=== PATIENT | female | born 1985 | race Caucasian/White ===

== ENCOUNTER 2016-12-29 17:52 | Emergency (ER) | payer OTHER ==
[~2016-12-29] VITALS: Ht 165.1 cm; Wt 56.7 kg
[2016-12-29 18:00] VITALS: BP 125/74; PULSE 74; RESP 19; TEMP 98; O2SAT 97
--- NOTE | 2016-12-29 18:10 | NUR ---
Patient triaged and placed in waiting room. VSS and patient appears in no acute distress at this time. Accompanied by FAMILY, awaiting available bed, and MD notified of need for MSE.
--- NOTE | 2016-12-29 19:10 | NUR ---
Patient to [facility] for evaluation. Side rails up. Report given to PAULA Jang.
--- NOTE | 2016-12-29 19:45 | NUR ---
GINA Holbrook examining patient.
[2016-12-29 20:04] LABS: BILIRUBIN,URINE NEGATIVE (NEGATIVE); BLOOD, URINE NEGATIVE (NEGATIVE); CLARITY/URINE CLEAR (CLEAR); COLOR,URINE YELLOW (YELLOW); GLUCOSE,URINE NEGATIVE (NEGATIVE); KETONES,URINE NEGATIVE (NEGATIVE); LEUKOCYTE ESTERASE ,URINE NEGATIVE (NEGATIVE); NITRITE, URINE NEGATIVE (NEGATIVE); PH,URINE 6.5 (5.0-8.0); PROTEIN URINE NEGATIVE (NEGATIVE); UROBILINOGEN,URINE 0.2 (0.2-1.0)
[2016-12-29] MEDS ORDERED: KETOROLAC TROMETHAMINE 60 MG/2 ML VIAL IM ONE (20:15)
[2016-12-29 20:27] VITALS: BP 125/74; PULSE 74; RESP 19; TEMP 98; O2SAT 97
--- NOTE | 2016-12-29 20:27 | NUR ---
Patient given written and verbal discharge instructions and verbalizes understanding. ER BUDGET MANAGER Yusef discussed with patient the results and treatment provided. Patient in stable condition. ID arm band removed. Rx of Motrin 600 given. Patient educated on pain management and to follow up with PMD. Pain Scale 2/10. Opportunity for questions provided and answered.
== END 2016-12-29 20:27 | disposition home or self-care (01) ==
LOC: SED 17:52
DX: R10.13 Epigastric pain (principal); R51 Headache
CPT/HCPCS: 81003; 81025; 96372; 99283; J1885

== ENCOUNTER 2017-03-20 11:28 | Outpatient (CLI) | payer OTHER | END 2017-03-20 15:24 | disposition home or self-care (01) | LOC: SRD 11:28 | PROVIDERS: ATTEND Internal Medicine | DX: Z01.818 Encounter for other preprocedural examination (principal); R05 Cough | CPT/HCPCS: 71020-TC ==

== ENCOUNTER 2017-03-30 05:30 | Day surgery (SDC) | payer OTHER ==
[2017-03-29 10:29] LABS: BASOPHILS % (AUTO) 0.4 % (0.0-2.0); EOSINOPHILS # (AUTO) 0.1 K/uL (0.0-0.4); HEMOGLOBIN 14.9 g/dL (12.0-16.0); LYMPHOCYTES # (AUTO) 1.8 K/uL (1.0-5.5); LYMPHOCYTES % (AUTO) 31.5 % (20.5-51.5); MEAN CORPUSCULAR HEMOGLOBIN 29 pg (27-31); MEAN CORPUSCULAR HGB CONC 33 % (32-36); MEAN CORPUSCULAR VOLUME 88 fL (79.0-98.0); MONOCYTES # (AUTO) 0.5 K/uL (0.0-1.0); MONOCYTES % (AUTO) 8.3 % (1.7-9.3); NEUTROPHILS # (AUTO) 3.3 K/uL (1.8-7.7); NEUTROPHILS % (AUTO) 57.8 % (40.0-70.0); PLATELET COUNT (AUTO) 226 K/uL (130-430); RED BLOOD CELL COUNT(AUTO) 5.13 MIL/uL (4.2-6.2); RED CELL DISTRIBUTION WIDTH 11.4 % (9.0-15.0); WHITE BLOOD COUNT (AUTO) 5.7 K/uL (4.8-10.8)
[2017-03-29 10:50] LABS: ALBUMIN 4.3 g/dL (3.4-4.8); CALCIUM 9.3 mg/dL (8.4-11.0); CREATININE 0.68 mg/dL (0.55-1.30); POTASSIUM 4.5 mmol/L (3.5-5.1); TOTAL BILIRUBIN 0.4 mg/dL (0.0-1.0); TOTAL PROTEIN, SERUM 7.9 g/dL (6.4-8.3)
[2017-03-29 11:09] LABS: BILIRUBIN,URINE NEGATIVE (NEGATIVE); BLOOD, URINE NEGATIVE (NEGATIVE); CLARITY/URINE CLEAR (CLEAR); COLOR,URINE YELLOW (YELLOW); GLUCOSE,URINE NEGATIVE (NEGATIVE); KETONES,URINE NEGATIVE (NEGATIVE); LEUKOCYTE ESTERASE ,URINE NEGATIVE (NEGATIVE); NITRITE, URINE NEGATIVE (NEGATIVE); PROTEIN URINE NEGATIVE (NEGATIVE); UROBILINOGEN,URINE 0.2 (0.2-1.0)
[2017-03-29 11:12] LABS: HCG,QUAL RESULT NEGATIVE (NEGATIVE)
[~2017-03-30] VITALS: Ht 165.1 cm; Wt 55.8 kg
[2017-03-30] MEDS ORDERED: ROCURONIUM BROMIDE 10 MG/ML (ZEMURON) IV ONE (07:02)
[2017-03-30] MEDS ORDERED: ONDANSETRON HCL 4 MG/2 ML VIAL IVP ONE (07:02)
[2017-03-30] MEDS ORDERED: CEFAZOLIN 1 GM IVPB PREMIX 50 ML IV ONE (07:02)
[2017-03-30] MEDS ORDERED: NS 1000 ML BAG IV ONE (07:02)
[2017-03-30] MEDS ORDERED: GLYCOPYRROLATE 0.2 MG/ML VIAL IJ ONE (07:02)
[2017-03-30] MEDS ORDERED: PROPOFOL 200MG/ 20ML VIAL (DIPRIVAN) IV ONE (07:02)
[2017-03-30] MEDS ORDERED: BUPIVACAINE /EPINEPHRINE/PF 0.25% 30 ML VIAL INJ ONE (07:02)
[2017-03-30] MEDS ORDERED: MIDAZOLAM HCL 5 MG/5 ML VIAL IVP ONE (07:02)
[2017-03-30] MEDS ORDERED: SEVOFLURANE 15 MIN GAS INH ONE (07:02)
[2017-03-30] MEDS ORDERED: KETOROLAC TROMETHAMINE 30 MG VIAL IVP ONE (07:02)
[2017-03-30] MEDS ORDERED: fentaNYL CITRATE/PF 100 MCG/2 ML AMP IVP ONE (07:02)
[2017-03-30] MEDS ORDERED: LR 1,000 ML IV.SOLN IV ONE (07:02)
[2017-03-30] MEDS ORDERED: NEOSTIGMINE METHYLSULFATE 1 MG/ML, 10 ML VIAL IVP ONE (07:02)
[2017-03-30] MEDS ORDERED: LR 1,000 ML IV SCH (08:01)
[2017-03-30] MEDS ORDERED: HYDROmorphone 1 MG INJ. 1 MG/ML AMPUL IVP PRN (08:15)
[2017-03-30] MEDS ORDERED: HYDROmorphone 2 MG/ML VIAL IVP PRN ×2 (08:15)
[2017-03-30] MEDS ORDERED: ONDANSETRON HCL 4 MG/2 ML VIAL IVP PRN ×3 (08:15→10:00)
[2017-03-30] MEDS ORDERED: MEPERIDINE HCL/PF 25 MG/ML DISP.SYRIN IVP PRN ×2 (08:15)
[2017-03-30] MEDS ORDERED: KETOROLAC TROMETHAMINE 30 MG VIAL IVP PRN (08:15)
[2017-03-30] MEDS ORDERED: PROMETHAZINE HCL 25 MG/ML AMP IM PRN ×4 (08:45→10:00)
[2017-03-30] MEDS ORDERED: IBUPROFEN 600 MG TABLET PO PRN ×2 (08:45→10:00)
[2017-03-30] MEDS ORDERED: OXYCODONE/ACETAMINOPHEN 5-325 TABLET PO PRN ×4 (08:45→10:00)
[2017-03-30] MEDS ORDERED: ONDANSETRON HCL 4 MG/2 ML VIAL ONE (09:51)
[2017-03-30 10:04] VITALS: BP_SYST 101
== END 2017-03-30 13:25 | disposition home or self-care (01) ==
LOC: SDS 05:30 → SMU 05:30 → SDS 13:25
PROVIDERS: ATTEND Obstetrics & Gynecology
DX: N80.9 Endometriosis, unspecified (principal)
CPT/HCPCS: 36415; 49320; 80053; 81003; 84703; 85025; 86886; 86900; 86901; J0690; J1885; J2250; J2405; J2704; J2710; J3010; J3490 ×2; J7030; J7120; C1727